=== PATIENT | male | born 1950 | race Caucasian/White ===

== ENCOUNTER → 2017-12-18 | Outpatient (CLI) | payer OTHER ==
[2017-12-18 16:34] LABS: BASO % 0.6 %; BASO ABS # 0.04 K/uL (0-0.2); EOS % 2.5 %; EOS ABS # 0.17 K/uL (0-0.5); HEMATOCRIT 44.1 % (42-52); HEMOGLOBIN 15.3 g/dL (14.0-18.0); IG# 0.04 K/uL (0.00-0.02); LYMPH ABS # 2.29 K/uL (1.2-3.4); MEAN CELL VOLUME 88.6 fL (80-100); MEAN CORPUSCULAR HEMOGLOBIN 30.7 pg (25-34); MEAN CORPUSCULAR HGB CONC 34.7 g/dl (32-36); MEAN PLATELET VOLUME 9.2 fL (7.4-10.4); MONO % 9.7 %; MONO ABS # 0.65 K/uL (0.11-0.59); NEUT % 52.6 %; NEUT ABS # 3.54 K/uL (1.4-6.5); PLATELET COUNT 203 K/uL (130-400); RED CELL DISTRIBUTION WIDTH SD 42.1 fL (36.4-46.3); WHITE BLOOD COUNT 6.73 K/uL (4.8-10.8)
[2017-12-18 17:13] LABS: ALBUMIN 3.8 gm/dl (3.4-5.0); ALKALINE PHOSPHATASE 63 U/L (45-117); ALT/SGPT 32 U/L (12-78); AST/SGOT 26 U/L (15-37); BLOOD UREA NITROGEN 17 mg/dl (7-18); CARBON DIOXIDE 29 mmol/L (21-32); CHOLESTEROL 91 mg/dl (0-200); CREATININE 0.81 mg/dl (0.60-1.40); GLUCOSE 68 mg/dl (70-99); LDL CHOLESTEROL CALCULATED 22 mg/dl; POTASSIUM 3.8 mmol/L (3.5-5.1); SODIUM 138 mmol/L (136-145); TOTAL PROTEIN 7.4 gm/dl (6.4-8.2)
== END | disposition home or self-care (01) ==
LOC: C.LAB 14:20
PROVIDERS: ATTEND Internal Medicine
DX: Z85.46 Personal history of malignant neoplasm of prostate (principal); E78.5 Hyperlipidemia, unspecified

== ENCOUNTER 2022-05-15 15:14 | Inpatient (IN) ==
--- NOTE | 2022-05-15 15:42 | Emergency Department Note ---
Impression & Plan Acute dyspnea, Bilateral edema of lower extremity, Bilateral pleural effusion, Mediastinal mass, Acute pericardial effusion ED Provider Note HISTORY OF PRESENT ILLNESS: Patient is a 71-year-old male presenting with shortness of breath and weight gain. Patient reports that he has been having progressively worsening shortness of breath over the last week. Reports that he was seen by his primary care provider yesterday and had a chest x-ray and echocardiogram ordered for tomorr ow. He reports that in the last 24 hours he has had significant worsening of his shortness of breath, most notably with exertion. He reports he is only able to take a few steps before becoming short of breath. He also reports significant lower extremity edema in the last 24 to 36 hours. Denies any history of heart failure. He denies any anticoagulation use he denies any chest pain. Denies any nausea or vomiting. Denies any recent fevers. Patient reports he has gained about 20 pounds in the last few weeks. ROS: as above PHYSICAL EXAM: Constitutional: Patient appears in no acute distress. HENT: Head: Normocephalic and atraumatic. Eyes: EOMI, PERRL Mouth/Throat: Mucous membranes moist. Neck: Trachea midline. Neck supple. Cardiovascular: RRR, No murmurs, rubs or gallops. Intact distal pulses. Pulmonary/Chest: No respiratory distress. Breath sounds clear and equal bilaterally. No wheezes or rales. Abdominal: BS +. Abdomen soft, no tenderness, rebound or guarding. Back: No midline spinal tenderness, no paraspinal tenderness, no CVA tenderness. Musculoskeletal: No tenderness or deformity noted. +2 pitting edema of bilateral lower extremities extending to knees. Skin: Warm and dry. No rash, erythema, pallor or cyanosis Psychiatric: Appropriate mood and affect for situation. Neurological: Alert and keenly responsive. CN II-XII grossly intact, moving all extremities equally and fully. MDM: - Vitals signs showed hypertension and tachycardia. - History obtained via patient. Patient presents with shortness of breath, weight gain and lower extremity edema. Patient reports feeling short of breath with exertion over the last week has been progressively worsening. Notably worsened in the last 24 hours, with new onset of bilateral lower extremity edema. Patient denies any chest pain. Denies any history of heart failure - Chronic conditions affecting care: aortic stenosis - Differential diagnoses include, but are not limited to: congestive heart failure; acute coronary syndrome; COPD/asthma exacerbation; pulmonary edema; pulmonary embolism; pneumonia; pneumothorax; viral syndrome - Order placed for continuous cardiac monitoring. At this time, monitor showed rate of 98 bpm with normal rhythm, per my interpretation. - External medical records reviewed. Patient was seen by his PCP yesterday and an echocardiogram and CXR were ordered. - EKG reviewed by myself showed normal sinus rhythm. Rate of 103 bpm. No acute ischemic changes. QTc 419. Normal intervals. - Laboratory workup interpreted by myself showed normal WBC; hyponatremia (Na 130); normal creatinine (0.97 - baseline around 0.8); normal troponin; normal BNP - COVID negative. - Patient given 20 mg IV lasix in ER. - CXR showed cardiomegaly with a left-sided pleural effusion, per my interpretation. Radiology noted small pleural effusions with bibasilar consolidation. - Initially consulted hospitalist, Dr. Lau, he recommended discharge on lasix. - However, patient became tachycardic and symptomatic with standing. Dimer obtained and positive. - CTA chest negative for PE. Noted to have a 5.5 cm lobular mass in the anterior mediastinum that appears to invade the pericardium and left pleural space. Noted to have large pericardial effusion and moderate pleural effusions. - Discussion was had with bilingual social worker about patient's case and need for admission. - Hospitalist, Dr. Willson, consulted for admission. - Patient admitted to [facility] Hospitalist service for further evaluation and management. ASSESSMENT AND PLAN: Diagnosis: dypnea; large pericardial effusion; mediastinal infiltrative mass; lower extremity edema; bilateral pleural effusions Plan: admit Past Med/Surg History Medical History Cardiac murmur Encounter for health maintenance examination in adult History of hepatitis B Left anterior fascicular block Prostate cancer (2007) Retinal detachment, right Seasonal allergies Snores Surgical History History of detached retina repair History of inguinal hernia repair History of tonsillectomy and adenoidectomy Hx of bilateral cataract extraction Hx of colonoscopy Hx of prostatectomy Hx of transurethral resection of prostate Nausea and vomiting after administration of anesthetic agent Family History Mother Cancer Anxiety Sister Anxiety Grandfather Prostate cancer Colorectal cancer Denies family history of Ovarian cancer Myocardial infarction Breast cancer Social History Smoking Status: Never smoker Second Hand Exposure: No; Hx Alcohol Use: Yes Alcohol type: beer Alcohol type Comment: 1 beer per day Alcohol Intake Frequency: 4 or More x per/Week Alcohol Intake Frequency Comment: 10 drinks per week Hx Substance Use: No Preferred Language: Frisian Communication Ability: Effective Visual Impairment: Diminished Hearing Ability: Normal Slitter And Cutter Operator Required: No Beliefs That Will Affect Care: None marital status: / Current Living Situation: Alone current occupational status: retired 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 Feels Safe at Home: Yes Childhood Exposure to Second-Hand Smoke: Yes Dental Care, Regularly: Yes Physical Activity Frequency: Daily Physical Activity Frequency Comment: walking, 40 Seatbelt Use: always Sunscreen Use: No Assistive Devices: Glasses Allergies Allergies Allergy/AdvReac Type Severity Reaction Status Date / Time nitrofurantoin Allergy Intermediate Hives Verified 05/13/22 10:40 [From Macrobid] Home Meds Home Medications Medication Instructions Recorded Confirmed lactobacillus combination no.4 3 1 dose PO DAILY 01/19/18 05/13/22 billion cell capsule (Probiotic) multivitamin (Multiple Vitamins 1 tab PO DAILY 01/19/18 05/13/22 tablet) omega 2-rpz-kpw-fish oil 1,000 mg 1 cap PO DAILY 01/19/18 05/13/22 (120 mg-180 mg) capsule (Fish Oil) Previous Rx's Medication Instructions Recorded sildenafil (pulm.hypertension) 20 See Rx Instructions PO ONCE #15 04/20/21 mg tablet tabs atorvastatin 20 mg tablet 20 mg PO DAILY #90 tabs 02/04/22 Results & Data (ED) Vital Signs Vital Signs - 24 hr 05/15/22 15:24 05/15/22 15:46 05/15/22 15:46 Temperature 36 C L Temperature Source Temporal Artery Scan Pulse Rate 104 H Pulse Rate from SpO2 Sensor Respiratory Rate 22 Blood Pressure 179/110 H Blood Pressure Mean 133 Pulse Oximetry 95 96 96 Oxygen Delivery Method Room Air Room Air Room Air Oxygen Flow Rate 0 Sepsis Recent Fever Within 48 Hours No Sepsis New/Unexplained Change in Mental Status No Sepsis Action Taken by Nursing No Action Required 05/15/22 16:00 05/15/22 17:00 05/15/22 17:30 Temperature Temperature Source Pulse Rate 95 H 96 H Pulse Rate from SpO2 Sensor 98 H Respiratory Rate 19 16 18 Blood Pressure 180/108 H 147/99 H 143/95 H Blood Pressure Mean 132 115 111 Pulse Oximetry 96 95 96 Oxygen Delivery Method Oxygen Flow Rate Sepsis Recent Fever Within 48 Hours Sepsis New/Unexplained Change in Mental Status Sepsis Action Taken by Nursing 05/15/22 18:00 05/15/22 18:13 05/15/22 19:00 Temperature Temperature Source Pulse Rate 99 H 99 H 98 H Pulse Rate from SpO2 Sensor 97 H Respiratory Rate 16 22 15 Blood Pressure 163/93 H 150/96 H 122/97 Blood Pressure Mean 116 114 105 Pulse Oximetry 96 97 Oxygen Delivery Method Room Air Oxygen Flow Rate Sepsis Recent Fever Within 48 Hours Sepsis New/Unexplained Change in Mental Status Sepsis Action Taken by Nursing 05/15/22 19:26 05/15/22 19:30 05/15/22 21:54 Temperature Temperature Source Pulse Rate 100 H 105 H Pulse Rate from SpO2 Sensor 100 H 103 H Respiratory Rate 18 25 H Blood Pressure 122/91 124/98 157/107 H Blood Pressure Mean 101 106 123 Pulse Oximetry 95 95 Oxygen Delivery Method Room Air Room Air Oxygen Flow Rate Sepsis Recent Fever Within 48 Hours Sepsis New/Unexplained Change in Mental Status Sepsis Action Taken by Nursing Laboratory Data 05/15/22 15:35 05/15/22 16:40 Lab Results 05/15/22 05/15/22 05/15/22 Range/Units 15:35 15:35 15:35 WBC 9.07 (4.8-10.8) K/ul RBC 5.18 (4.63-6.08) M/uL Hgb 16.3 (14.0-18.0) g/dl Hct 46.5 (40.1-51.0) % MCV 89.8 (80.0-100.0) fL MCH 31.5 (25.0-34.0) pg MCHC 35.1 (32.0-36.0) g/dL RDW Std Deviation 42.5 (36.4-46.3) fL RDW Coeff of Nem[place] 13.0 (11.5-14.5) % Plt Count 261 (130-400) K/uL MPV 10.2 (9.4-12.4) fL Immature Gran % (Auto) 0.8 % Neut % (Auto) 60.1 % Lymph % (Auto) 28.3 % [place] % (Auto) 8.7 % Eos % (Auto) 1.4 % Baso % (Auto) 0.7 % Neut # (Auto) 5.45 (1.4-6.5) K/uL Lymph # (Auto) 2.57 (1.2-3.4) K/uL [place] # (Auto) 0.79 (0.24-0.82) K/uL Eos # (Auto) 0.13 (0-0.50) K/uL Baso # (Auto) 0.06 (0-0.2) K/uL Immature Gran # (Auto) 0.07 H (0.00-0.02) K/uL D-Dimer (0-500) ug/L FEU Sodium Cancelled Potassium Cancelled Chloride Cancelled Carbon Dioxide Cancelled Anion Gap Cancelled BUN Cancelled Creatinine Cancelled Est Cr Clr Drug Dosing Cancelled Est GFR ( Amer) Cancelled Est GFR (Non-Af Amer) Cancelled BUN/Creatinine Ratio Cancelled Glucose Cancelled Calcium Cancelled Magnesium Cancelled Total Bilirubin Cancelled AST Cancelled ALT Cancelled Alkaline Phosphatase Cancelled Troponin I High Sens Cancelled B-Natriuretic Peptide Cancelled Total Protein Cancelled Albumin Cancelled Globulin Cancelled Albumin/Globulin Ratio Cancelled SARS-CoV-2, RNA, NAAT (NEGATIVE) 05/15/22 05/15/22 05/15/22 Range/Units 15:36 16:40 16:40 WBC (4.8-10.8) K/ul RBC (4.63-6.08) M/uL Hgb (14.0-18.0) g/dl Hct (40.1-51.0) % MCV (80.0-100.0) fL MCH (25.0-34.0) pg MCHC (32.0-36.0) g/dL RDW Std Deviation (36.4-46.3) fL RDW Coeff of Nem[place] (11.5-14.5) % Plt Count (130-400) K/uL MPV (9.4-12.4) fL Immature Gran % (Auto) % Neut % (Auto) % Lymph % (Auto) % [place] % (Auto) % Eos % (Auto) % Baso % (Auto) % Neut # (Auto) (1.4-6.5) K/uL Lymph # (Auto) (1.2-3.4) K/uL [place] # (Auto) (0.24-0.82) K/uL Eos # (Auto) (0-0.50) K/uL Baso # (Auto) (0-0.2) K/uL Immature Gran # (Auto) (0.00-0.02) K/uL D-Dimer (0-500) ug/L FEU Sodium 130 L Potassium 4.2 Chloride 98 Carbon Dioxide 24 Anion Gap 8 BUN 25 H Creatinine 0.97 Est Cr Clr Drug Dosing 67.1 Est GFR ( Amer) 89.4 Est GFR (Non-Af Amer) 77.1 BUN/Creatinine Ratio 25.8 H Glucose 98 Calcium 9.4 Magnesium 2.1 Total Bilirubin 1.6 H AST 33 ALT 24 Alkaline Phosphatase 60 Troponin I High Sens 7.4 B-Natriuretic Peptide 45 Total Protein 7.1 Albumin 4.3 Globulin 2.8 Albumin/Globulin Ratio 1.5 SARS-CoV-2, RNA, NAAT NEGATIVE (NEGATIVE) 05/15/22 Range/Units 16:41 WBC (4.8-10.8) K/ul RBC (4.63-6.08) M/uL Hgb (14.0-18.0) g/dl Hct (40.1-51.0) % MCV (80.0-100.0) fL MCH (25.0-34.0) pg MCHC (32.0-36.0) g/dL RDW Std Deviation (36.4-46.3) fL RDW Coeff of Nemo (11.5-14.5) % Plt Count (130-400) K/uL MPV (9.4-12.4) fL Immature Gran % (Auto) % Neut % (Auto) % Lymph % (Auto) % [place] % (Auto) % Eos % (Auto) % Baso % (Auto) % Neut # (Auto) (1.4-6.5) K/uL Lymph # (Auto) (1.2-3.4) K/uL [place] # (Auto) (0.24-0.82) K/uL Eos # (Auto) (0-0.50) K/uL Baso # (Auto) (0-0.2) K/uL Immature Gran # (Auto) (0.00-0.02) K/uL D-Dimer 1120 H* (0-500) ug/L FEU Sodium Potassium Chloride Carbon Dioxide Anion Gap BUN Creatinine Est Cr Clr Drug Dosing Est GFR ( Amer) Est GFR (Non-Af Amer) BUN/Creatinine Ratio Glucose Calcium Magnesium Total Bilirubin AST ALT Alkaline Phosphatase Troponin I High Sens B-Natriuretic Peptide Total Protein Albumin Globulin Albumin/Globulin Ratio SARS-CoV-2, RNA, NAAT (NEGATIVE) Administered Medications Discontinued Medications Furosemide (Furosemide Inj 20 Mg/2 Ml Vial) 20 mg IV ONE ONE Stop: 05/15/22 17:47 Last Admin: 05/15/22 17:53 Dose: 20 mg Documented By: BENNETT Ioversol (Optiray 320 500ml) 109 ml IV ONCE ONE Stop: 05/15/22 20:14 Last Admin: 05/15/22 20:17 Dose: 109 ml Documented By: TEMO Imaging Data Radiologist's Impression: Chest X-Ray 05/15/22 15:28 SINGLE VIEW CHEST CLINICAL HISTORY: Dyspnea FINDINGS: An AP, portable, upright chest radiograph is obtained. No prior studies are available for comparison at the time of dictation. The heart is enlarged. The pulmonary vasculature is noncongested. There are small pleural effusions with bibasilar consolidation. No pneumothorax is seen. A calcified granuloma is noted at the right lung base. The skeletal structures are osteopenic. The bony thorax is grossly intact. IMPRESSION: 1. Cardiomegaly without radiographic evidence of congestive failure. 2. Small pleural effusions with bibasilar consolidation. This like represents atelectasis and clinical correlation will be required. ACT 112: Negative or not required by law. Electronically signed by: Ismael Tejeda M.D. 05/15/2022 4:31 PM Chest CTA 05/15/22 19:55 CT ANGIOGRAM OF THE CHEST CLINICAL HISTORY: Dyspnea. COMPARISON STUDY: Chest x-ray dated 05/15/2022. TECHNIQUE: Following the IV administration of 109 cc of Optiray 320, CT angiogram of the chest was performed from the upper abdomen to the thoracic inlet utilizing the pulmonary embolus protocol. Images are reviewed in the axial, sagittal, and coronal planes. 3-D MIPS images are created and assessed. IV contrast was administered without complication. A dose lowering technique was utilized adhering to the principles of ALARA. CT DOSE: 362.79 mGy.cm FINDINGS: Thyroid: Atrophic and heterogeneous. Thoracic aorta: There is mild atherosclerotic calcification of the thoracic aorta, which is normal in caliber and demonstrates 4-vessel variant arch anatomy. The thoracic aorta is not opacified. Pulmonary vasculature: The pulmonary trunk is normal in caliber. There are no filling defects identified in main, lobar, or segmental pulmonary branches to suggest pulmonary embolus. Heart: The heart is normal in size. There is a large pericardial effusion. There is bowing of the anterior wall of the right ventricle. The coronary arteries are densely calcified. Lungs and pleural spaces: There are qvhkf-[id number] pleural effusions, right larger than left with associated bibasilar scarring/atelectasis. A 4 mm subsolid nodule is seen in the left upper lobe on image #214. Mediastinum: There is a lobulated and infiltrative appearing soft tissue mass in the anterior mediastinum seen on image #23. This measures 5.5 x 3.8 x 5.3 cm and appears to invade the pericardium. This also invades the left pleural space on image #202. This also likely minimally invades the right anterior pleura on image #200. No additional mediastinal lesion or lymphadenopathy is seen. Kellie: Clear. Axillae: There is no axillary lymphadenopathy. Upper abdomen: There is perihepatic and perisplenic ascites. There are least 2 hepatic cyst which measure up to 3.1 cm. Reflux of contrast into the IVC and hepatic veins suggests cardiac dysfunction. Skeletal structures: The skeletal structures are osteopenic. Degenerative change and hyperkyphosis is noted in the thoracic spine. No lytic or blastic bony lesions are seen. IMPRESSION: 1. There is no evidence of pulmonary embolus in the main, lobar, or segmental pulmonary arteries. 2. There is a 5.5 cm lobular/infiltrative appearing mass in the anterior mediastinum. This appears to invade the pericardium and the left pleural space. This may also minimally invade the right anterior pleura. Neoplasm is the diagnosis of exclusion. 3. There is a large pericardial effusion. This bows the anterior wall of the right ventricle and there is evidence of cardiac dysfunction. Correlate clinically for evidence of tamponade. Cardiology assessment is advised. 4. Small to moderate pleural effusions. 5. There is a small volume of upper abdominal ascites. 6. There is a 4 mm subsolid pulmonary nodule in the left upper lobe. Attention at follow-up is recommended. 7. There is no airspace consolidation typical for pneumonia. 8. Additional findings as above. ACT 112: Positive. There are findings on this exam that require communication between the performing entity and the patient following Patient Test Result Information Act ([place] Act 112) guidelines. Electronically signed by: Ismael Tejeda M.D. 05/15/2022 8:49 PM Discharge Plan Visit Data Chief Complaint: Shortness of Breath/Dyspnea Stated Complaint: SOB ED Provider: Anel Montgomery Discharge Problem: Acute dyspnea, Bilateral edema of lower extremity, Bilateral pleural effusion, Mediastinal mass, Acute pericardial effusion Patient Disposition: Admitted As Inpatient Forms Stand Alone Forms: [facility] [place] [email or web address] Prescriptions Prescriptions: No Action atorvastatin 20 mg tablet 20 mg PO DAILY Qty: 90 3RF sildenafil (pulm.hypertension) 20 mg tablet See Rx Instructions PO ONCE Qty: 15 5RF Rx Instructions: 3-5 tabs as needed PO once as needed multivitamin [Multiple Vitamins] Tablet 1 tab PO DAILY omega 9-tqv-xhq-fish oil [Fish Oil] 1,000 mg (120 mg-180 mg) Capsule 1 cap PO DAILY lactobacillus combination no.4 [Probiotic] 3 billion cell Capsule 1 dose PO DAILY Referrals Referrals: Adele Patino MD [Primary Care Provider] -
[2022-05-15 16:04] LABS: Basophils # (auto) 0.06 K/uL (0-0.2); Basophils % (auto) 0.7 %; Eosinophils # (auto) 0.13 K/uL (0-0.50); Eosinophils % (auto) 1.4 %; Hematocrit (blood only) 46.5 % (40.1-51.0); Hemoglobin 16.3 g/dl (14.0-18.0); Immature Granulocytes # (auto) 0.07 K/uL (0.00-0.02); Immature Granulocytes % (auto) 0.8 %; Lymphocytes # (auto) 2.57 K/uL (1.2-3.4); Lymphocytes % (auto) 28.3 %; Mean Corpuscular Hemoglobin 31.5 pg (25.0-34.0); Mean Corpuscular Hgb Conc 35.1 g/dL (32.0-36.0); Mean Corpuscular Volume 89.8 fL (80.0-100.0); Mean Platelet Volume 10.2 fL (9.4-12.4); Monocytes # (auto) 0.79 K/uL (0.24-0.82); Monocytes % (auto) 8.7 %; Neutrophils # (auto) 5.45 K/uL (1.4-6.5); Neutrophils % (auto) 60.1 %; Platelet Count 261 K/uL (130-400); RDW Standard Deviation 42.5 fL (36.4-46.3); Red Blood Count 5.18 M/uL (4.63-6.08); White Blood Count 9.07 K/ul (4.8-10.8)
--- NOTE | 2022-05-15 16:34 | XRay Report ---
SINGLE VIEW CHEST CLINICAL HISTORY: Dyspnea FINDINGS: An AP, portable, upright chest radiograph is obtained. No prior studies are available for c omparison at the time of dictation. The heart is enlarged. The pulmonary vasculature is noncongested. There are small pleural effusions with bibasilar consolidation. No pneumothorax is seen. A calcified granuloma is noted at the right lung base. The skeletal structures are osteopenic. The bony thorax i s grossly intact. IMPRESSION: 1. Cardiomegaly without radiographic evidence of congestive failure. 2. Small pleural effusions with bibasilar consolidation. This like represents atelectasis and clinica l correlation will be required. ACT 112: Negative or not required by law. Electronically signed by: Ismael Tejeda M.D. 05/15/2022 4:31 PM
[2022-05-15 17:25] LABS: Albumin Globulin Ratio 1.5 (0.9-2); Albumin Level 4.3 gm/dl (3.4-5.0); BUN Creatinine Ratio 25.8 (10-20); Bilirubin,Total 1.6 mg/dl (0.2-1.0); Calcium 9.4 mg/dl (8.5-10.1); Creatinine Clr Calc Pharmacy 67.1 ml/min; Est GFR (African American) 89.4 ml/min; Est GFR (Non-African American) 77.1 ml/min; Globulin 2.8 gm/dl (2.5-4.0); Magnesium 2.1 mg/dl (1.7-2.4); Potassium 4.2 mmol/L (3.5-5.1); Total Protein 7.1 gm/dl (6.0-8.3)
[2022-05-15 17:31] LABS: Troponin I High Sensitivity 7.4 pg/ml (0-20)
[2022-05-15] MEDS ORDERED: FUROSEMIDE INJ 20 MG/2 ML VIAL IV ONE (17:46)
[2022-05-15 19:56] LABS: D Dimer 1120 ug/L FEU (0-500)
[2022-05-15] MEDS ORDERED: OPTIRAY 320 500ml IV ONE (20:13)
--- NOTE | 2022-05-15 20:52 | CT Scan Report ---
CT ANGIOGRAM OF THE CHEST CLINICAL HISTORY: Dyspnea. COMPARISON STUDY: Chest x-ray dated 05/15/2022. TECHNIQUE: Following the IV administration of 109 cc of Optiray 320, CT angiogram of the chest was pe rformed from the upper abdomen to the thoracic inlet utilizing the pulmonary embolus protocol. Images are reviewed in the axial, sagittal, and coronal planes. 3-D MIPS images are created and assessed. I V contrast was administered without complication. A dose lowering technique was utilized adhering to the principles of ALARA. CT DOSE: 362.79 mGy.cm FINDINGS: Thyroid: Atrophic and heterogeneous. Thoracic aorta: There is mild atherosclerotic calcification of the thoracic aorta, which is normal in caliber and demonstrates 4-vessel variant arch anatomy. The thoracic aorta is not opacified. Pulmonary vasculature: The pulmonary trunk is normal in caliber. There are no filling defects identif ied in main, lobar, or segmental pulmonary branches to suggest pulmonary embolus. Heart: The heart is normal in size. There is a large pericardial effusion. There is bowing of the ant erior wall of the right ventricle. The coronary arteries are densely calcified. Lungs and pleural spaces: There are [id number]-[id number] pleural effusions, right larger than left with associated bibasilar scarring/atelectasis. A 4 mm subsolid nodule is seen in the left upper lobe on i mage #214. Mediastinum: There is a lobulated and infiltrative appearing soft tissue mass in the anterior mediast inum seen on image #23. This measures 5.5 x 3.8 x 5.3 cm and appears to invade the pericardium. This also invades the left pleural space on image #202. This also likely minimally invades the right anter ior pleura on image #200. No additional mediastinal lesion or lymphadenopathy is seen. Kellie: Clear. Axillae: There is no axillary lymphadenopathy. Upper abdomen: There is perihepatic and perisplenic ascites. There are least 2 hepatic cyst which kate sure up to 3.1 cm. Reflux of contrast into the IVC and hepatic veins suggests cardiac dysfunction. Skeletal structures: The skeletal structures are osteopenic. Degenerative change and hyperkyphosis is noted in the thoracic spine. No lytic or blastic bony lesions are seen. IMPRESSION: 1. There is no evidence of pulmonary embolus in the main, lobar, or segmental pulmonary arteries. 2. There is a 5.5 cm lobular/infiltrative appearing mass in the anterior mediastinum. This appears to invade the pericardium and the left pleural space. This may also minimally invade the right anterior pleura. Neoplasm is the diagnosis of exclusion. 3. There is a large pericardial effusion. This bows the anterior wall of the right ventricle and ther e is evidence of cardiac dysfunction. Correlate clinically for evidence of tamponade. Cardiology asse ssment is advised. 4. Small to moderate pleural effusions. 5. There is a small volume of upper abdominal ascites. 6. There is a 4 mm subsolid pulmonary nodule in the left upper lobe. Attention at follow-up is recomm ended. 7. There is no airspace consolidation typical for pneumonia. 8. Additional findings as above. ACT 112: Positive. There are findings on this exam that require communication between the performing entity and the patient following Patient Test Result Information Act ([place] Act 112) guidelines. Electronically signed by: Ismael Tejeda M.D. 05/15/2022 8:49 PM
--- NOTE | 2022-05-15 22:06 | History & Physical Report ---
Date of Service May 15, 2022 Assessment & Plan (1) Acute dyspnea: Plan: 71yo male presenting with 2 weeks of progressive ZIMMERMAN, weight gain and edema. CTA with 5.5 cm lobulated/infiltrative appearing mass in the anterior mediastinum which is invading the pericardium and the left pleural space and possibly the right anterior pleura concerning for neoplasm as well as a large pericardial effusion. Adequate oxygenation on room air with no respiratory distress. HD stable. -Admit to PCU -Supplemental O2 as needed -Lasix 20mg IV given in the ER - will avoid further diuresis at this time given large pericardial effusion as well as progression of (2) Mediastinal mass: Plan: Concern for malignant process noted on imaging. Less likely post-viral - patient with recent Covid-19 infection -Cardiology consultation appreciated, ?pericardiocentesis in AM -Oncology consultation appreciated (3) Acute pericardial effusion: Plan: Patient presently hemodynamically stable. He does have some right sided JVD as well as muffled heart sounds, low voltage EKG consistent with pericardial fluid. -Check 2D echo in AM -Cardiology consultation appreciated. Will keep patient NPO after midnight for possible procedure - ?pericardiocentesis with evaluation for malignant cells (4) Moderate aortic stenosis: Plan: Noted -Check 2D echo as above -Avoid aggressive diuresis in presence of moderate + pericardial effusion (5) Hyperlipidemia: Plan: Chronic -Continue Atorvastatin F/E/N - Heplock. Electrolytes WNL. NPO for now Ppx - SCDs Code - Full per discussion with patient Dispo - Admit to PCU History of Present Illness Chief Complaint: shortness of breath Primary Care Provider: Adele Patino MD Mp Beth is a pleasant 71yo male with history of prostate cancer in 2007 s/p prostatectomy, HLP and moderate aortic stenosis presenting with progressive shortness of breath and weight gain. Patient developed sinus congestion and flu-like symptoms in mid-March. He tested POSITIVE for Covid-19 shortly after. Patient seemingly recovered nicely from Covid. Approximately one week ago he began to develop some issues swallowing. He reports feeling some dysphagia to solids, increased throat pressure with swallowing as well as early satiety, bloating and reflux symptoms. He began feeling some improvement 4-5 days ago. Then he was carrying his granddaughter down the driveway and became very dyspneic. He began experiencing progressive dyspnea with exertion - shortness of breath with climbing stairs and walking up minimal inclines. As well as 20# unintentional weight gain in the last 2 weeks. He called his PCP with above complaints and was seen in clinic on 05/13/22. An EKG was performed which revealed some Q waves in the anterior leads which were not present on prior study from January 2022. An EKG and Echocardiogram were ordered to be performed outpatient on 05/16/22. Patient additionally complaining of LE edema, abdominal distention, poor appetite, occasional lightheadedness and decreased urinary output. He denies chest pain, palpitations, abdominal pain, nausea, vomiting, diarrhea or constipation. Patient has mild aortic stenosis under surveillance by Cardiology. He was recently upgraded to moderate aortic stenosis at last Cardiology visit. Patient is active and independent at baseline. He walks approximately 2 miles daily without difficulty until recently. In the ER patient is afebrile, HD stable, non-toxic in appearance. CT of the chest as below - revealed anterior mediastinal mass and large pericardial effusion. ER Course: Lasix 20mg IV Allergies Allergy/AdvReac Type Severity Reaction Status Date / Time nitrofurantoin Allergy Intermediate Hives Verified 05/13/22 10:40 [From Macrobid] Home Medications Medication Instructions Recorded Confirmed Type lactobacillus combination no.4 3 1 dose PO DAILY 01/19/18 05/13/22 History billion cell capsule (Probiotic) multivitamin (Multiple Vitamins 1 tab PO DAILY 01/19/18 05/13/22 History tablet) omega 6-xtb-rvw-fish oil 1,000 mg 1 cap PO DAILY 01/19/18 05/13/22 History (120 mg-180 mg) capsule (Fish Oil) sildenafil (pulm.hypertension) 20 See Rx Instructions PO ONCE #15 04/20/21 05/13/22 Rx mg tablet tabs atorvastatin 20 mg tablet 20 mg PO DAILY #90 tabs 02/04/22 05/13/22 Rx Past Med/Surg History Medical History Cardiac murmur DX NOV 2017 with mild mitral regurg, ECHO 12/22, [facility] Encounter for health maintenance examination in adult History of hepatitis B Left anterior fascicular block Prostate cancer (2006) Retinal detachment, right Seasonal allergies Snores NO SLEEP STUDY Surgical History History of detached retina repair 08/2020 History of inguinal hernia repair January 2018, Dr Ye, right side History of tonsillectomy and adenoidectomy Hx of bilateral cataract extraction with bilateral IOL Hx of colonoscopy x2 Hx of prostatectomy 2006, [place], [place] Hx of transurethral resection of prostate Nausea and vomiting after administration of anesthetic agent WITH T&A IN CHILDHOOD Family History Mother Cancer Anxiety Sister Anxiety Grandfather Prostate cancer Colorectal cancer Denies family history of Ovarian cancer Myocardial infarction Breast cancer Social History Smoking Status: Never smoker Second Hand Exposure: No; Do You Dip or Chew Tobacco: No; Tobacco Cessation Education Requested by Patient: No Hx Alcohol Use: Yes Alcohol type: beer Alcohol type Comment: 1 beer per day Alcohol Intake Frequency: 4 or More x per/Week Alcohol Intake Frequency Comment: 10 drinks per week Hx Substance Use: No Preferred Language: Lithuanian Communication Ability: Effective Visual Impairment: Diminished Hearing Ability: Normal Cat Scanner Operator Required: No Beliefs That Will Affect Care: None marital status: / Current Living Situation: Alone current occupational status: retired 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 Other Information That Helps Us Care for You: No Feels Safe at Home: Yes Safety Concerns: Feels Safe At This Time Childhood Exposure to Second-Hand Smoke: Yes Dental Care, Regularly: Yes Physical Activity Frequency: Daily Physical Activity Frequency Comment: walking, 40 Seatbelt Use: always Sunscreen Use: No Assistive Devices: None Review of Systems Review of Systems: All systems reviewed & are unremarkable except as noted in HPI & below Physical Exam Physical Exam: General: patient resting comfortably, NAD, non-toxic in appearance, AA&O x 4 Skin: warm, dry, intact, no rashes or lesions HEENT: NC/AT, PERRL, EOMI, anicteric sclera, conjunctiva without injection, external ear normal to inspection and nontender, nares patent, moist mucus membranes, dentition intact, no oropharyngeal lesions, neck supple, trachea midline, no LAD, no thyromegaly, JVD noted on the left Heart: +S1/S2, diminished heart sounds, regular, no m/r/g Lungs: equal air entry bilaterally, no rales/rhonchi/wheezes Abd: +BS, soft, NT/ND, no masses/organomegaly/ascites Ext: warm, 2+ pulses in UE/LE bilaterally, no clubbing/cyanosis, 1+ edema of bilateral LE edema Neuro: nonfocal, patient AA&O x 4, speech intact, no facial droop, moving all extremities on command with equal strength 5/5 Results & Data Results & Data ([facility]) Vital Signs (Past 12 Hours) Vital Signs Temp Pulse Resp BP Pulse Ox O2 Del Method O2 Flow Rate 05/15/22 21:54 105 H 25 H 157/107 H 95 Room Air 05/15/22 19:30 100 H 18 124/98 95 Room Air 05/15/22 19:26 122/91 05/15/22 19:00 98 H 15 122/97 97 Room Air 05/15/22 18:13 99 H 22 150/96 H 96 05/15/22 18:00 99 H 16 163/93 H 05/15/22 17:30 96 H 18 143/95 H 96 05/15/22 17:00 95 H 16 147/99 H 95 05/15/22 16:00 19 180/108 H 96 05/15/22 15:46 96 Room Air 05/15/22 15:46 96 Room Air 0 05/15/22 15:24 36 C L 104 H 22 179/110 H 95 Room Air Laboratory Results Laboratory Results WBC 9.07 K/ul (4.8-10.8) 05/15/22 15:35 RBC 5.18 M/uL (4.63-6.08) 05/15/22 15:35 Hgb 16.3 g/dl (14.0-18.0) 05/15/22 15:35 Hct 46.5 % (40.1-51.0) 05/15/22 15:35 MCV 89.8 fL (80.0-100.0) 05/15/22 15:35 MCH 31.5 pg (25.0-34.0) 05/15/22 15:35 MCHC 35.1 g/dL (32.0-36.0) 05/15/22 15:35 RDW Std Deviation 42.5 fL (36.4-46.3) 05/15/22 15:35 RDW Coeff of Nemo 13.0 % (11.5-14.5) 05/15/22 15:35 Plt Count 261 K/uL (130-400) 05/15/22 15:35 MPV 10.2 fL (9.4-12.4) 05/15/22 15:35 Immature Gran % (Auto) 0.8 % 05/15/22 15:35 Neut % (Auto) 60.1 % 05/15/22 15:35 Lymph % (Auto) 28.3 % 05/15/22 15:35 Dougherty % (Auto) 8.7 % 05/15/22 15:35 Eos % (Auto) 1.4 % 05/15/22 15:35 Baso % (Auto) 0.7 % 05/15/22 15:35 Neut # (Auto) 5.45 K/uL (1.4-6.5) 05/15/22 15:35 Lymph # (Auto) 2.57 K/uL (1.2-3.4) 05/15/22 15:35 Dougherty # (Auto) 0.79 K/uL (0.24-0.82) 05/15/22 15:35 Eos # (Auto) 0.13 K/uL (0-0.50) 05/15/22 15:35 Baso # (Auto) 0.06 K/uL (0-0.2) 05/15/22 15:35 Immature Gran # (Auto) 0.07 K/uL (0.00-0.02) H 05/15/22 15:35 D-Dimer 1120 ug/L FEU (0-500) H* 05/15/22 16:41 Sodium 130 mmol/L (136-145) L 05/15/22 16:40 Potassium 4.2 mmol/L (3.5-5.1) 05/15/22 16:40 Chloride 98 mmol/L (98-107) 05/15/22 16:40 Carbon Dioxide 24 mmol/L (21-32) 05/15/22 16:40 Anion Gap 8 (3-11) 05/15/22 16:40 BUN 25 mg/dl (6-23) H 05/15/22 16:40 Creatinine 0.97 mg/dl (0.6-1.4) 05/15/22 16:40 Est Cr Clr Drug Dosing 67.1 ml/min 05/15/22 16:40 Est GFR ( Amer) 89.4 ml/min 05/15/22 16:40 Est GFR (Non-Af Amer) 77.1 ml/min 05/15/22 16:40 BUN/Creatinine Ratio 25.8 (10-20) H 05/15/22 16:40 Glucose 98 mg/dl (70-99(Fasting)) 05/15/22 16:40 Calcium 9.4 mg/dl (8.5-10.1) 05/15/22 16:40 Magnesium 2.1 mg/dl (1.7-2.4) 05/15/22 16:40 Total Bilirubin 1.6 mg/dl (0.2-1.0) H 05/15/22 16:40 AST 33 U/L (13-39) 05/15/22 16:40 ALT 24 U/L (7-52) 05/15/22 16:40 Alkaline Phosphatase 60 U/L (34-104) 05/15/22 16:40 Troponin I High Sens 7.4 pg/ml (0-20) 05/15/22 16:40 C-Reactive Protein 0.63 mg/dl (0-0.5) H 05/15/22 16:40 B-Natriuretic Peptide 45 pg/ml (0-100) 05/15/22 16:40 Total Protein 7.1 gm/dl (6.0-8.3) 05/15/22 16:40 Albumin 4.3 gm/dl (3.4-5.0) 05/15/22 16:40 Globulin 2.8 gm/dl (2.5-4.0) 05/15/22 16:40 Albumin/Globulin Ratio 1.5 (0.9-2) 05/15/22 16:40 Urine Color Yellow 05/15/22 23:00 Urine Appearance Clear (Clear) 05/15/22 23:00 Urine pH 5.0 (4.5-7.5) 05/15/22 23:00 Ur Specific [place] 1.032 (1.000-1.030) H 05/15/22 23:00 Urine Protein Negative (Negative) 05/15/22 23:00 Urine Glucose (UA) Negative (Negative) 05/15/22 23:00 Urine Ketones Negative (Negative) 05/15/22 23:00 Urine Blood Negative (Negative) 05/15/22 23:00 Urine Nitrite Negative (Negative) 05/15/22 23:00 Urine Bilirubin Negative (Negative) 05/15/22 23:00 Urine Urobilinogen Negative (Negative) 05/15/22 23:00 Ur Leukocyte Esterase Negative (Negative) 05/15/22 23:00 Influ A Molecular Assay Negative (Negative) 05/15/22 21:51 Influ B Molecular Assay Negative (Negative) 05/15/22 21:51 SARS-CoV-2, RNA, NAAT NEGATIVE (NEGATIVE) 05/15/22 15:36 Impressions Chest X-Ray 05/15/22 15:28 SINGLE VIEW CHEST CLINICAL HISTORY: Dyspnea FINDINGS: An AP, portable, upright chest radiograph is obtained. No prior studies are available for comparison at the time of dictation. The heart is enlarged. The pulmonary vasculature is noncongested. There are small pleural effusions with bibasilar consolidation. No pneumothorax is seen. A calcified granuloma is noted at the right lung base. The skeletal structures are osteopenic. The bony thorax is grossly intact. IMPRESSION: 1. Cardiomegaly without radiographic evidence of congestive failure. 2. Small pleural effusions with bibasilar consolidation. This like represents atelectasis and clinical correlation will be required. ACT 112: Negative or not required by law. Electronically signed by: Ismael Tejeda M.D. 05/15/2022 4:31 PM Chest CTA 05/15/22 19:55 CT ANGIOGRAM OF THE CHEST CLINICAL HISTORY: Dyspnea. COMPARISON STUDY: Chest x-ray dated 05/15/2022. TECHNIQUE: Following the IV administration of 109 cc of Optiray 320, CT angiogram of the chest was performed from the upper abdomen to the thoracic inlet utilizing the pulmonary embolus protocol. Images are reviewed in the axial, sagittal, and coronal planes. 3-D MIPS images are created and assessed. IV contrast was administered without complication. A dose lowering technique was utilized adhering to the principles of ALARA. CT DOSE: 362.79 mGy.cm FINDINGS: Thyroid: Atrophic and heterogeneous. Thoracic aorta: There is mild atherosclerotic calcification of the thoracic aorta, which is normal in caliber and demonstrates 4-vessel variant arch anatomy. The thoracic aorta is not opacified. Pulmonary vasculature: The pulmonary trunk is normal in caliber. There are no filling defects identified in main, lobar, or segmental pulmonary branches to suggest pulmonary embolus. Heart: The heart is normal in size. There is a large pericardial effusion. There is bowing of the anterior wall of the right ventricle. The coronary arteries are densely calcified. Lungs and pleural spaces: There are [id number] pleural effusions, right larger than left with associated bibasilar scarring/atelectasis. A 4 mm subsolid nodule is seen in the left upper lobe on image #214. Mediastinum: There is a lobulated and infiltrative appearing soft tissue mass in the anterior mediastinum seen on image #23. This measures 5.5 x 3.8 x 5.3 cm and appears to invade the pericardium. This also invades the left pleural space on image #202. This also likely minimally invades the right anterior pleura on image #200. No additional mediastinal lesion or lymphadenopathy is seen. Kellie: Clear. Axillae: There is no axillary lymphadenopathy. Upper abdomen: There is perihepatic and perisplenic ascites. There are least 2 hepatic cyst which measure up to 3.1 cm. Reflux of contrast into the IVC and hepatic veins suggests cardiac dysfunction. Skeletal structures: The skeletal structures are osteopenic. Degenerative change and hyperkyphosis is noted in the thoracic spine. No lytic or blastic bony lesions are seen. IMPRESSION: 1. There is no evidence of pulmonary embolus in the main, lobar, or segmental pulmonary arteries. 2. There is a 5.5 cm lobular/infiltrative appearing mass in the anterior mediastinum. This appears to invade the pericardium and the left pleural space. This may also minimally invade the right anterior pleura. Neoplasm is the diagnosis of exclusion. 3. There is a large pericardial effusion. This bows the anterior wall of the right ventricle and there is evidence of cardiac dysfunction. Correlate clinically for evidence of tamponade. Cardiology assessment is advised. 4. Small to moderate pleural effusions. 5. There is a small volume of upper abdominal ascites. 6. There is a 4 mm subsolid pulmonary nodule in the left upper lobe. Attention at follow-up is recommended. 7. There is no airspace consolidation typical for pneumonia. 8. Additional findings as above. ACT 112: Positive. There are findings on this exam that require communication between the performing entity and the patient following Patient Test Result Information Act ([place] Act 112) guidelines. Electronically signed by: Ismael Tejeda M.D. 05/15/2022 8:49 PM ECG Additional Comments: EKG with ST at 103, low voltage QRS, rate of 103, XP=476, QRS=84, RSx=096 Code Status & VTE Plan VTE Prophylaxis Plan VTE Prophylaxis will be ordered: Yes PG Care Time/CCT Total # of Minutes Spent Total Time Spent with Patient: Total time spent is greater than 50% in coordination of care (as documented) at patient's floor/unit and/or counseling patient: Coding Level of Care Code 73341 INT INP/OBS CARE 3/75MIN Diagnoses Acute dyspnea R06.00 Mediastinal mass J98.59 Acute pericardial effusion I30.9 Moderate aortic stenosis I35.0 Hyperlipidemia E78.5
[2022-05-15 22:21] LABS: Influenza A virus by PCR Negative (Negative); Influenza B virus by PCR Negative (Negative)
[2022-05-16] MEDS ORDERED: ACETAMINOPHEN 325 MG TAB PO PRN (01:32)
[2022-05-16] MEDS ORDERED: DOCUSATE SODIUM 100 MG CAP PO PRN (01:32)
[2022-05-16 01:56] LABS: Appearance Urine Clear (Clear); Bilirubin Urine Negative (Negative); Blood Urine Negative (Negative); Color Urine Yellow; Glucose Urine UA Negative (Negative); Ketones Urine Negative (Negative); Leukocyte Esterase Urine Negative (Negative); Nitrite Urine Negative (Negative); Protein Urine Negative (Negative); Specific Gravity Urine 1.032 (1.000-1.030); Urobilinogen Urine Negative (Negative)
[2022-05-16 06:04] LABS: Basophils # (auto) 0.06 K/uL (0-0.2); Basophils % (auto) 0.6 %; Eosinophils # (auto) 0.15 K/uL (0-0.50); Eosinophils % (auto) 1.6 %; Hematocrit (blood only) 41.6 % (40.1-51.0); Hemoglobin 14.5 g/dl (14.0-18.0); Immature Granulocytes # (auto) 0.06 K/uL (0.00-0.02); Immature Granulocytes % (auto) 0.6 %; Lymphocytes # (auto) 2.65 K/uL (1.2-3.4); Lymphocytes % (auto) 27.6 %; Mean Corpuscular Hemoglobin 31.3 pg (25.0-34.0); Mean Corpuscular Hgb Conc 34.9 g/dL (32.0-36.0); Mean Corpuscular Volume 89.8 fL (80.0-100.0); Mean Platelet Volume 9.3 fL (9.4-12.4); Monocytes # (auto) 0.92 K/uL (0.24-0.82); Monocytes % (auto) 9.6 %; Neutrophils # (auto) 5.76 K/uL (1.4-6.5); Platelet Count 219 K/uL (130-400); RDW Coefficient of Variation 13.1 % (11.5-14.5); RDW Standard Deviation 42.5 fL (36.4-46.3); Red Blood Count 4.63 M/uL (4.63-6.08)
[2022-05-16 06:43] LABS: Albumin Level 3.9 gm/dl (3.4-5.0); BUN Creatinine Ratio 21.8 (10-20); Bilirubin Direct 0.3 mg/dl (0-0.2); Bilirubin,Total 1.4 mg/dl (0.2-1.0); Calcium 9.2 mg/dl (8.5-10.1); Creatinine Clr Calc Pharmacy 64.3 ml/min; Est GFR (African American) 85.1 ml/min; Est GFR (Non-African American) 73.4 ml/min; Potassium 4.2 mmol/L (3.5-5.1); Total Protein 6.5 gm/dl (6.0-8.3)
--- NOTE | 2022-05-16 06:59 | Oncology Consultation ---
Date of Consultation May 16, 2022 Assessment & Plan (1) Mediastinal mass: (2) Bilateral edema of lower extremity: (3) Bilateral pleural effusion: (4) Acute pericardial effusion: Plan Maldonado gentleman who presented with shortness of breath and peripheral edema. CTA chest revealed large anterior mediastinal mass as well as large pericardial effusion and small to moderate pleural effusions. -Anterior mediastinal mass concerning for malignancy with differentials being lymphoma, germ cell or thymic malignancy. We will check LDH, beta-hCG and AFP to rule out germ cell malignancy.LDH may also be helpful if this is a lymphoma -He will also need CT abdomen and pelvis as well as brain MRI to evaluate for the sites of disease -Ultimately, patient will need tissue sampling for diagnosis. If he has pericardiocentesis today, would recommend sending fluid for cytology. If c ytology is concerning for lymphoma, will obtain FISH testing on fluid. -If pericardiocentesis cannot be performed or is negative for malignancy, would recommend evaluation by pulmonology to see if bronchoscopy/EBUS with biopsy can be performed Thank you for this consult. Oncology will continue following patient while in the hospital. Please feel free to call if you have any further questions History of Present Illness Reason for Consultation: Mediastinal mass Attending Physician: Arabella Willson, History of Present Illness Maldonado 71-year-old gentleman with medical history significant for prostate cancer diagnosed in 2006 for which he status post prostatectomy. He presented to the ED [facility] on 05/15/2022 with complaints of worsening dyspnea on exertion as well as peripheral edema and weight gain. CTA chest on 05/15/2022 revealed no evidence of PE but incidentally noted 5.5 cm lobular/infiltrative appearing mass in the anterior mediastinum appearing to invade the pericardium and left pleural space with minimal invasion of the right anterior pleura, large pericardial effusion with evidence of cardiac dysfunction, small to moderate pleural effusions, small volume of upper abdom inal ascites and 4 mm of solid pulmonary nodule in the left upper lobe. He endorses shortness of breath, facial puffiness, bilateral lower extremity swelling, loss of appetite. Indicates that he has gained close to 20 pounds over the past few weeks. Denies smoking history Allergies Allergy/AdvReac Type Severity Reaction Status Date / Time nitrofurantoin Allergy Intermediate Hives Verified 05/13/22 10:40 [From Macrobid] Home Medications Medication Instructions Recorded Confirmed Type lactobacillus combination no.4 3 1 dose PO DAILY 01/19/18 05/13/22 History billion cell capsule (Probiotic) multivitamin (Multiple Vitamins 1 tab PO DAILY 01/19/18 05/13/22 History tablet) omega 2-wlk-tiq-fish oil 1,000 mg 1 cap PO DAILY 01/19/18 05/13/22 History (120 mg-180 mg) capsule (Fish Oil) sildenafil (pulm.hypertension) 20 See Rx Instructions PO ONCE #15 04/20/21 05/13/22 Rx mg tablet tabs atorvastatin 20 mg tablet 20 mg PO DAILY #90 tabs 02/04/22 05/13/22 Rx Patient History Medical History Cardiac murmur DX NOV 2017 with mild mitral regurg, ECHO 12/22, [facility] Encounter for health maintenance examination in adult History of hepatitis B Left anterior fascicular block Prostate cancer (2006) Retinal detachment, right Seasonal allergies Snores NO SLEEP STUDY Surgical History History of detached retina repair 08/2020 History of inguinal hernia repair January 2018, Dr Ye, right side History of tonsillectomy and adenoidectomy Hx of bilateral cataract extraction with bilateral IOL Hx of colonoscopy x2 Hx of prostatectomy 2006, [place], [place] Hx of transurethral resection of prostate Nausea and vomiting after administration of anesthetic agent WITH T&A IN CHILDHOOD Family History Mother Cancer Anxiety Sister Anxiety Grandfather Prostate cancer Colorectal cancer Denies family history of Ovarian cancer Myocardial infarction Breast cancer Social History Smoking Status: Never smoker Second Hand Exposure: No; Do You Dip or Chew Tobacco: No; Tobacco Cessation Education Requested by Patient: No Hx Alcohol Use: Yes Alcohol type: beer Alcohol type Comment: 1 beer per day Alcohol Intake Frequency: 4 or More x per/Week Alcohol Intake Frequency Comment: 10 drinks per week Hx Substance Use: No Preferred Language: Thai Communication Ability: Effective Visual Impairment: Diminished Hearing Ability: Normal Mail Order Sorter Required: No Beliefs That Will Affect Care: None marital status: / Current Living Situation: Alone current occupational status: retired 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 Other Information That Helps Us Care for You: No Feels Safe at Home: Yes Safety Concerns: Feels Safe At This Time Childhood Exposure to Second-Hand Smoke: Yes Dental Care, Regularly: Yes Physical Activity Frequency: Daily Physical Activity Frequency Comment: walking, 40 Seatbelt Use: always Sunscreen Use: No Assistive Devices: None Physical Exam Constitutional: WD/WN, vitals as above Eyes: PERRL, conjunctivae normal, anicteric sclerae ENMT: external ear and nose normal, oropharynx normal Respiratory: Decreased air entry in bilateral lower lung erwin Cardiovascular: 3/6 systolic ejection murmur. 2+ bilateral lower extremity ed vivian Gastrointestinal (Abdomen): normal bowel sounds, soft, nontender, no hepatosplenomegaly Results & Data ([facility]) Vital Signs (Past 12 Hours) Vital Signs Temp Pulse Pulse Resp BP BP Pulse Ox 05/16/22 05:32 36.5 C 95 H 18 144/92 H 95 05/16/22 02:15 97 H 05/16/22 01:32 36.7 C 101 H 14 163/105 H 97 05/16/22 01:32 05/16/22 01:30 05/16/22 01:00 92 H 18 128/84 95 05/16/22 00:30 96 H 13 118/85 96 05/15/22 23:30 117/71 05/15/22 22:30 99 H 26 H 157/104 H 96 05/15/22 21:54 105 H 25 H 157/107 H 95 05/15/22 19:30 100 H 18 124/98 95 05/15/22 19:26 122/91 05/15/22 19:00 98 H 15 122/97 97 Pulse Ox O2 Del Method O2 Del Method 05/16/22 05:32 Room Air 05/16/22 02:15 05/16/22 01:32 Room Air 05/16/22 01:32 97 Room Air 05/16/22 01:30 Room Air 05/16/22 01:00 Room Air 05/16/22 00:30 Room Air 05/15/22 23:30 05/15/22 22:30 05/15/22 21:54 Room Air 05/15/22 19:30 Room Air 05/15/22 19:26 05/15/22 19:00 Room Air
--- NOTE | 2022-05-16 11:29 | Pre Anesthesia Assessment ---
Date of Service May 16, 2022 Pre Sedation Assessment Vital Signs Temp Pulse Pulse Resp BP BP Pulse Ox 05/16/22 08:00 92 H 05/16/22 08:00 05/16/22 07:34 36.6 C 97 H 20 156/99 H 95 05/16/22 05:32 36.5 C 95 H 18 144/92 H 95 05/16/22 02:15 97 H 05/16/22 01:32 36.7 C 101 H 14 163/105 H 97 05/16/22 01:32 05/16/22 01:30 05/16/22 01:00 92 H 18 128/84 95 05/16/22 00:30 96 H 13 118/85 96 05/15/22 23:30 117/71 05/15/22 22:30 99 H 26 H 157/104 H 96 05/15/22 21:54 105 H 25 H 157/107 H 95 05/15/22 19:30 100 H 18 124/98 95 05/15/22 19:26 122/91 05/15/22 19:00 98 H 15 122/97 97 05/15/22 18:13 99 H 22 150/96 H 96 05/15/22 18:00 99 H 16 163/93 H 05/15/22 17:30 96 H 18 143/95 H 96 05/15/22 17:00 95 H 16 147/99 H 95 05/15/22 16:00 19 180/108 H 96 05/15/22 15:46 96 05/15/22 15:46 96 05/15/22 15:24 36 C L 104 H 22 179/110 H 95 Pulse Ox O2 Del Method O2 Del Method O2 Flow Rate 05/16/22 08:00 05/16/22 08:00 Room Air 05/16/22 07:34 Room Air 05/16/22 05:32 Room Air 05/16/22 02:15 05/16/22 01:32 Room Air 05/16/22 01:32 97 Room Air 05/16/22 01:30 Room Air 05/16/22 01:00 Room Air 05/16/22 00:30 Room Air 05/15/22 23:30 05/15/22 22:30 05/15/22 21:54 Room Air 05/15/22 19:30 Room Air 05/15/22 19:26 05/15/22 19:00 Room Air 05/15/22 18:13 05/15/22 18:00 05/15/22 17:30 05/15/22 17:00 05/15/22 16:00 05/15/22 15:46 Room Air 05/15/22 15:46 Room Air 0 05/15/22 15:24 Room Air Cardiovascular RRR, no murmur, no edema Respiratory normal respiratory effort, lungs clear to auscultation Pre-Sedation Airway Assessment Smoking Status: Never smoker Mallampati class 4 ASA 3 Notes The planned sedation has been discussed with the patient. Informed Consent was obtained. I have identified the patient, determined the appropriateness of sedation and have assessed the patient immediately prior to the procedure. All medicine(s) and interventions are by my order.
[2022-05-16] MEDS: ATORVASTATIN 20 MG TAB PO SCH (12:23)
--- NOTE | 2022-05-16 14:26 | Electrocardiogram Report ---
Test Reason : Blood Pressure : / mmHG Vent. Rate : 103 BPM Atrial Rate : 103 BPM P-R Int : 172 ms QRS Dur : 084 ms QT Int : 320 ms P-R-T Axes : 053 -54 098 degrees QTc Int : 419 ms Sinus tachycardia Left axis deviation Low voltage QRS Inferior infarct , age undetermined Cannot rule out Anteroseptal infarct , age undetermined Abnormal ECG When compared with ECG of 25-JAN-2018 11:06, Vent. rate has increased BY 43 BPM Questionable change in QRS duration Minimal criteria for Anteroseptal infarct are now Present Inferior infarct is now Present Confirmed by Rudi Nguyen ([id number]) on 05/16/2022 2:26:04 PM Referred By: REFERRED SELF Confirmed By:Rudi Nguyen
--- NOTE | 2022-05-16 18:43 | Hospitalist Progress Note ---
Date of Service May 16, 2022 Assessment & Plan (1) Acute dyspnea: Plan: Due to mediastinal mass pericardial effusion and the beginnings of tamponade physiology. See below. (2) Mediastinal mass: Plan: Concern for malignant process noted on imaging. Will need to obtain cellsgiven that management of pericardial effusion will affect ability for cytologyfor now obtain cytology as below, then close outpatient oncology follow-up. (3) Acute pericardial effusion: Plan: Is still hemodynamically stable. He does have some right sided JVD as well as muffled heart sounds, low voltage EKG consistent with pericardial fluid. -After discussion with cardiology, as well as discussion with cardiology, patient, son and cardiology at the same timepericardiocentesis would be a viable way to drain the effusion, as well as hopefully obtain cells for cytologyhoweverwould be unlikely to have much of a lasting effect on resolution of the effusion, particularly given that it is highly likely to be a malignant effusion. To that end, the pericardiocentesis would not be reliable to "buy enough time" for cytology/pathology to return, treatment be initiated, and treatment to take effect. Because of that, transfer to tertiary care for thoracic surgery, and more definitive management such as pericardial window was preferred, and agreed upon by patient/son. [facility] [place] [facility]. (4) Moderate aortic stenosis: Plan: Noted (5) Hyperlipidemia: Plan: Chronic -Continue Atorvastatin Plan Currently stable pending transfer to [facility] for more definitive management of his pericardial effusion, cardiology on standby for pericardiocentesis should he show any degree of deterioration. Admission and Anticipated Discharge Date Admission Date: May 15, 2022 Subjective Not having any dyspnea at rest or conversational dyspnea. Later on revisit does have a mild degree of shortness of breath with eating. Notes dyspnea on exertion has been slowly progressive over the last few weeks. Case discussed with cardiology extensively, as well as in the room with the patient, input greatly appreciated. Review of Systems Review of Systems: All systems reviewed & are unremarkable except as noted in HPI & below Physical Exam Physical Exam: In general he is awake and alert pleasant no distress. HEENT normocephalic atraumatic mucous membranes moist. Breathing unlabored no accessory muscle use good effort. Skin shows no rashes no pallor or icterus. Neuro without focal deficits. Results & Data Results & Data ([facility]) Vital Signs (Past 12 Hours) Vital Signs Temp Pulse Pulse Resp BP Pulse Ox O2 Del Method 05/16/22 15:49 97.9 F 106 H 19 131/75 94 Room Air 05/16/22 11:31 97.7 F 99 H 18 131/99 95 Room Air 05/16/22 08:00 92 H 05/16/22 08:00 Room Air 05/16/22 07:34 97.9 F 97 H 20 156/99 H 95 Room Air PG Care Time/CCT Total # of Minutes Spent Total Time Spent with Patient: Total time spent is greater than 50% in coordination of care (as documented) at patient's floor/unit and/or counseling patient: Coding Level of Care Code 98520 SUB INP/OBS CARE 3/50MIN Diagnoses Acute dyspnea R06.00 Mediastinal mass J98.59 Acute pericardial effusion I30.9 Moderate aortic stenosis I35.0 Hyperlipidemia E78.5
--- NOTE | 2022-05-16 18:59 | XCELERA ---
[id number]
--- NOTE | 2022-05-16 19:05 | Discharge Summary ---
Date of Service May 16, 2022 Admission HPI Per Admitting Provider Mp Beth is a pleasant 71yo male with history of prostate cancer in 2007 s/p prostatectomy, HLP and moderate aortic stenosis presenting with progressive shortness of breath and weight gain. Patient developed sinus congestion and flu-like symptoms in mid-March. He tested POSITIVE for Covid-19 shortly after. Patient seemingly recovered nicely from Covid. Approximately one week ago he began to develop some issues swallowing. He reports feeling some dysphagia to solids, increased throat pressure with swallowing as well as early satiety, bloating and reflux symptoms. He began feeling some improvement 4-5 days ago. Then he was carrying his granddaughter down the driveway and became very dyspneic. He began experiencing progressive dyspnea with exertion - shortness of breath with climbing stairs and walking up minimal inclines. As well as 20# unintentional weight gain in the last 2 weeks. He called his PCP with above complaints and was seen in clinic on 05/13/22. An EKG was performed which revealed some Q waves in the anterior leads which were not present on prior study from January 2022. An EKG and Echocardiogram were ordered to be performed outpatient on 05/16/22. Patient additionally complaining of LE edema, abdominal distention, poor appetite, occasional lightheadedness and decreased urinary output. He denies chest pain, palpitations, abdominal pain, nausea, vomiting, diarrhea or constipation. Patient has mild aortic stenosis under surveillance by Cardiology. He was recently upgraded to moderate aortic stenosis at last Cardiology visit. Patient is active and independent at baseline. He walks approximately 2 miles daily without difficulty until recently. In the ER patient is afebrile, HD stable, non-toxic in appearance. CT of the chest as below - revealed anterior mediastinal mass and large pericardial effusion. ER Course: Lasix 20mg IV Principal Diagnosis mediastinal mass, pericardial effusion Discharge Exam see progress note Discharge Data Allergies Allergy/AdvReac Type Severity Reaction Status Date / Time nitrofurantoin Allergy Intermediate Hives Verified 05/13/22 10:40 [From Macrobid] Consultations 05/15/22 21:09 ED Decision to Admit Stat 05/16/22 01:32 Consult Cardiology Routine Consult Hematology Routine Ordered Studies 05/15/22 19:55 CT for pulmonary embolism PE [CT angio chest PE protocol] Stat Hospital Course (1) Acute dyspnea: Due to mediastinal mass pericardial effusion and the beginnings of tamponade physiology. See below. (2) Mediastinal mass: Concern for malignant process noted on imaging. Will need to obtain cellsgiven that management of pericardial effusion will affect ability for cytologyfor now obtain cytology as below, then close outpatient oncology follow-up. (3) Acute pericardial effusion: Is still hemodynamically stable. He does have some right sided JVD as well as muffled heart sounds, low voltage EKG consistent with pericardial fluid. -After discussion with cardiology, as well as discussion with cardiology, patient, son and cardiology at the same timepericardiocentesis would be a viable way to drain the effusion, as well as hopefully obtain cells for cytologyhoweverwould be unlikely to have much of a lasting effect on resolution of the effusion, particularly given that it is highly likely to be a malignant effusion. To that end, the pericardiocentesis would not be reliable to "buy enough time" for cytology/pathology to return, treatment be initiated, and treatment to take effect. Because of that, transfer to [facility] care for thoracic surgery, and more definitive management such as pericardial window was preferred, and agreed upon by patient/son. accepted for transfer to [facility] (4) Moderate aortic stenosis: Noted (5) Hyperlipidemia: Chronic -Continue Atorvastatin Plan Currently stable pending transfer to [facility] for more definitive management of his pericardial effusion, cardiology on standby for pericardiocentesis should he show any degree of deterioration. Total Time Total Time Spent Total Time Spent (In Minutes): <30 Discharge Plan Discharge Items Patient Disposition: Transfer Acute Care Hospital Reason For Visit: DYSPNEA Discharge Diagnosis: mediastinal mass, subsequent pericardial effusion Activity: Per Instructions section Activity Comment: per tertiary care Non-emergency contact: Primary Care Provider and Surgeon Call non-emergency contact if: you have any medication questions Follow-up/Referrals: Adele Patino MD [Primary Care Provider] - Diet: Regular Addtl Attending Provider Instructions: management of mediastinal mass and pericardial effusion per tertiary upon arrival. please see discharge summary for more detaisl Pending Studies at Discharge: No Stand-Alone Forms: [facility] Patient informed of condition?: Yes DNR: No Discharge Level of Care: Other Communicable Disease: No Discharge Prognosis: Other Lines: Peripheral IV Urinary Catheter: No Medications and DC Order Prescriptions: Continued atorvastatin 20 mg tablet 20 mg PO DAILY Qty: 90 3RF sildenafil (pulm.hypertension) 20 mg tablet See Rx Instructions PO ONCE Qty: 15 5RF Rx Instructions: 3-5 tabs as needed PO once as needed multivitamin [Multiple Vitamins] Tablet 1 tab PO DAILY omega 7-czn-wqn-fish oil [Fish Oil] 1,000 mg (120 mg-180 mg) Capsule 1 cap PO DAILY lactobacillus combination no.4 [Probiotic] 3 billion cell Capsule 1 dose PO DAILY Discharge Orders: Discharge Order (Routine); Ordered 05/16/22 Ordered By: Logan Melo Admission Data Admit Date/Time: 05/15/22 22:05 Attending Provider: Logan Melo Admit Provider: Arabella Willson Primary Care Provider: Adele Patino Other Providers: Arabella Willson ; Siria Kendrick ; Kishor Newman ; Espinoza Mac ; Theodore Burns ; Jose Bashir ; Kamari Hung ; Kirill Mejia Jr ; Rudi Nguyen ; Bernadette Wallace ; Lula Barber ; Scotty Tejada ; Luis Escamilla ; Raghav Haile ; Dariana Corley ; Katherin Khan ; Benito Hernandez ; Demetris Veloz ; Hu Hutton ; Jose Sher V. Coding Level of Care Code HOSP INP/OBS DISCH >30 MIN Diagnoses Acute dyspnea R06.00 Mediastinal mass J98.59 Acute pericardial effusion I30.9 Moderate aortic stenosis I35.0 Hyperlipidemia E78.5
--- NOTE | 2022-05-16 19:21 | Cardiology Consultation ---
Date of Consultation May 16, 2022 Assessment & Plan (1) Acute pericardial effusion: Based on the size of the pericardium and no high risk findings suggestive of cardiac tamponade (only right atrial collapse on echo) this effusion has likely been accumulating for weeks to months. Therefore, lower risk for impending tamponade. It is not unreasonable for him to hold off on pericardiocentesis in favor of a pericardial window which will likely give him longer relief and may also have a higher diagnostic yield with regard to cancer. Furthermore, if his mediastinal mass is believed to be in need of surgery that could occur at or near the same time. The hospitalists is working to arrange for transportation to a tertiary center. In the meantime, we will allow his blood pressure to remain on the higher side and avoid intravascular volume depletion and tachycardia. I will continue to follow and should he develop more concerning symptoms then we will proceed with emergent pericardiocentesis as indicated. (2) Moderate aortic stenosis: Previously known. Severe LVH. Maintain adequate intravascular volume and avoid tachycardia. We will continue to follow this as an outpatient. (3) Bilateral edema of lower extremity: Patient with volume overload. However, do not want to excessively diuresis. Edema is secondary to aortic stenosis and/or any compressive forces on the venous system including the pericardial effusion or extravascular compression from the mass. Plan I will follow. Await plan for transfer. History of Present Illness Reason for Consultation: Pericardial effusion Attending Physician: Logan Melo DO History of Present Illness 71-year-old gentleman with a history of moderate aortic stenosis presented with weight gain and shortness of breath. During the course of his work-up which included CT scan he was found to have a large mediastinal mass and a large pericardial effusion. Echocardiogram was requested and performed. Echocardiogram confirmed large pericardial effusion with right atrial collapse but without any RV collapse and normal respiratory variation. These therefore did not suggest ongoing cardiac tamponade but were concerning for potential progression to tamponade (right atrial collapse early tamponade sign). Patient was also seen by oncology for the mass in his mediastinum. Patient denies any anginal type chest pain. He notes progressive exertional dyspnea with rapid worsening in the past week or so. He also noted weight gain and lower extremity edema. He noted early satiety. He has a history of prostate cancer which was treated with robotic surgical excision approximately 7 years ago. He did not receive chemotherapy or radiation therapy to the chest or prostate. He tells me that his PSA has been elevated but not excessively so and has been stable at its current level. He denies any shortness of breath at rest. Denies lightheadedness, dizziness, or syncope. He has had no racing heartbeat, palpitations, and only recently developed lower extremity edema. I discussed with him the risk, benefits, and alternatives to pericardiocentesis. We also discussed that he currently was not an emergency procedure but we did hope to gain some therapeutic benefit as well as potentially make a diagnosis based on fluid collected from pericardiocentesis. Discussion with oncology suggested that the patient would eventually need tissue for diagnosis whether t hat came from pericardial effusion or from biopsy. That would be critical for appropriate therapy particularly should the mediastinal mass represents a cancer. We also discussed the short-term benefit of pericardiocentesis and the potential for reaccumulation of fluid, particularly should his mass be cancerous. This was also discussed with his son who was present at the bedside. We discussed a pericardial window has a more durable solution to prevent reaccumulation/cardiac tamponade. Ultimately, the patient and his family wished to have transfer to a tertiary center for further treatment. They would be willing to undergo pericardiocentesis here if his clinical status began to deteriorate and transfer was not quickly available. Allergies Allergy/AdvReac Type Severity Reaction Status Date / Time nitrofurantoin Allergy Intermediate Hives Verified 05/13/22 10:40 [From Macrobid] Home Medications Medication Instructions Recorded Confirmed Type lactobacillus combination no.4 3 1 dose PO DAILY 01/19/18 05/13/22 History billion cell capsule (Probiotic) multivitamin (Multiple Vitamins 1 tab PO DAILY 01/19/18 05/13/22 History tablet) omega 6-vsf-odr-fish oil 1,000 mg 1 cap PO DAILY 01/19/18 05/13/22 History (120 mg-180 mg) capsule (Fish Oil) sildenafil (pulm.hypertension) 20 See Rx Instructions PO ONCE #15 04/20/21 05/13/22 Rx mg tablet tabs atorvastatin 20 mg tablet 20 mg PO DAILY #90 tabs 02/04/22 05/13/22 Rx Patient History Medical History Cardiac murmur DX NOV 2017 with mild mitral regurg, ECHO 12/22, [facility] Encounter for health maintenance examination in adult History of hepatitis B Left anterior fascicular block Prostate cancer (2006) Retinal detachment, right Seasonal allergies Snores NO SLEEP STUDY Surgical History History of detached retina repair 08/2020 History of inguinal hernia repair January 2018, Dr Ye, right side History of tonsillectomy and adenoidectomy Hx of bilateral cataract extraction with bilateral IOL Hx of colonoscopy x2 Hx of prostatectomy 2006, [place], [place] Hx of transurethral resection of prostate Nausea and vomiting after administration of anesthetic agent WITH T&A IN CHILDHOOD Family History Mother Cancer Anxiety Sister Anxiety Grandfather Prostate cancer Colorectal cancer Denies family history of Ovarian cancer Myocardial infarction Breast cancer Social History Smoking Status: Never smoker Second Hand Exposure: No; Do You Dip or Chew Tobacco: No; Tobacco Cessation Education Requested by Patient: No Hx Alcohol Use: Yes Alcohol type: beer Alcohol type Comment: 1 beer per day Alcohol Intake Frequency: 4 or More x per/Week Alcohol Intake Frequency Comment: 10 drinks per week Hx Substance Use: No Preferred Language: Monegasque Communication Ability: Effective Visual Impairment: Diminished Hearing Ability: Normal Director Corporate Required: No Beliefs That Will Affect Care: None marital status: / Current Living Situation: Alone current occupational status: retired 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 Except as per HPI Physical Exam Constitutional: WD/WN, vitals as above (Elderly. No acute distress.) Eyes: Extraocular muscles intact. Sclera are anicteric. ENMT: Oral mucosa is pink, moist, and intact. Neck: JVD to the angle of the jaw Respiratory: Bibasilar dullness. Scattered crackles. No rhonchi or wheezing. Good air movement. Cardiovascular: Regular rhythm. Mildly tachycardic rate. Grade 2 out of 6 to 3 out of 6 systolic murmur. S4 gallop. 1+ bilateral lower extremity edema. Gastrointestinal (Abdomen): Firm. Normal active bowel sounds. Nontender. Musculoskeletal: no cyanosis or clubbing, extremities motor strength 5/5 Neurologic: Cognition is intact. Speech is fluent. No focal deficits. No tremor. Psychiatric: A+Ox3, euthymic affect Results & Data ([facility]) Vital Signs (Past 12 Hours) Vital Signs Temp Pulse Pulse Resp BP Pulse Ox O2 Del Method 05/16/22 15:49 36.6 C 106 H 19 131/75 94 Room Air 05/16/22 11:31 36.5 C 99 H 18 131/99 95 Room Air 05/16/22 08:00 92 H 05/16/22 08:00 Room Air 05/16/22 07:34 36.6 C 97 H 20 156/99 H 95 Room Air PG Care Time/CCT Total # of Minutes Spent Total Time Spent with Patient: Total time spent is greater than 50% in coordination of care (as documented) at patient's floor/unit and/or counseling patient: [place] [address] INT INP/OBS CARE 3/75MIN Patient Type New Diagnoses Acute pericardial effusion I30.9 Moderate aortic stenosis I35.0 Bilateral edema of lower extremity R60.0
[2022-05-17] MEDS ORDERED: COUGH DROP (SUGAR FREE) LOZ 24 LOZ/1 BOX BUCCAL ONE (07:23)
[2022-05-17] MEDS: ATORVASTATIN 20 MG TAB PO SCH (07:25)
== END 2022-05-17 09:07 | disposition short-term general hospital (02) | DRG 607 ==
LOC: ED 15:14 → 2E 22:05 → SUATTDRO 22:05 → 2E 05-16 01:30